=== PATIENT | male | born 1960 | race Caucasian/White ===

== ENCOUNTER 2023-08-27 06:59 | Outpatient (RCR) | payer OTHER, SELFPAY | END 2023-08-27 23:59 | disposition home or self-care (01) | LOC: RPT 06:59 | PROVIDERS: ATTENDING PHYSICIAN Specialist; FAMILY PHYSICIAN Family Medicine | DX: M75.41 Impingement syndrome of right shoulder (principal); M75.42 Impingement syndrome of left shoulder | CPT/HCPCS: 97110; 97162 ==

== ENCOUNTER 2023-09-26 16:06 | Outpatient (RCR) | payer OTHER, SELFPAY | END 2023-09-26 23:59 | disposition home or self-care (01) | LOC: RPT 16:06 | PROVIDERS: ATTENDING PHYSICIAN Specialist; FAMILY PHYSICIAN Family Medicine | DX: M75.41 Impingement syndrome of right shoulder (principal); M75.42 Impingement syndrome of left shoulder; Z73.6 Limitation of activities due to disability; M62.81 Muscle weakness (generalized) | CPT/HCPCS: 97110; 97140 ==

== ENCOUNTER 2023-10-17 15:56 | Outpatient (RCR) | payer OTHER, SELFPAY | END 2023-10-17 23:59 | disposition home or self-care (01) | LOC: RPT 15:56 | PROVIDERS: ATTENDING PHYSICIAN Specialist; FAMILY PHYSICIAN Family Medicine | DX: M75.41 Impingement syndrome of right shoulder (principal); M75.42 Impingement syndrome of left shoulder; Z73.6 Limitation of activities due to disability | CPT/HCPCS: 97110; 97140 ==

== ENCOUNTER → 2024-02-28 15:03 | Outpatient (REF) | payer OTHER, SELFPAY | LOC: HWRAD 15:03 | PROVIDERS: ATTENDING PHYSICIAN Family Medicine | DX: E78.2 Mixed hyperlipidemia (principal) | CPT/HCPCS: 75571 ==

== ENCOUNTER 2024-06-29 10:38 | Emergency (ER) | payer OTHER, SELFPAY ==
[2024-06-29 10:41] VITALS: BP 128/77
--- NOTE | 2024-06-29 11:19 | ED.GENMED ---
History of Present Illness
General
Chief Complaint: Facial Problem
Time Seen by Provider: 06/29/24 11:19
History of Present Illness
History of Present Illness:
TIME OF INITIAL ENCOUNTER: 11:25 AM
HPI: Over the last few days, the patient is describing left-sided facial/anterolateral neck discomfort. He had associated fevers and chills. He went to urgent care this morning where he tested negative for COVID. He has some trouble swallowing
due to pain near the left ear.
EXAM:
GENERAL: Well appearing in no distress
HEENT: Moist oral mucosa, there is no palpable mass in the anterolateral aspect of the left neck, TMJ function is normal, no palpable cervical lymphadenopathy
CARDIOVASCULAR: No murmurs, normal heart rate, regular rhythm, No chest wall tenderness
PULMONARY: No respiratory distress, breath sounds are clear and equal
ABDOMEN: Soft with no peritoneal signs, no tenderness
NEUROLOGIC: Excellent strength all extremities, no coordination deficits
PSYCHIATRIC: Appropriate mental status, normal insight and judgement
EXTREMITIES: Nontender, no edema, moves all extremities equally
SKIN: No rash, no lesions
NUMBER AND COMPLEXITY OF PROBLEMS ADDRESSED AT THE ENCOUNTER
� Chronic conditions affecting care: Hyperlipidemia, BPH, GERD
� Acute Exacerbation and/or Progression of Chronic Illness: This is an acute problem
� Differential Diagnosis includes: Viral syndrome, lymphadenitis, lymphadenopathy, neck/throat abscess
AMOUNT AND/OR COMPLEXITY OF DATA TO BE REVIEWED AND ANALYZED
� I performed an independent evaluation of and my interpretation is:
EKG:
CT: CT imaging shows no acute abnormality at the neck other than multiple left-sided thyroid nodules
X-rays:
Laboratory Studies: White count is normal at 9.1, hemoglobin 15.3, chemistries unremarkable
Other:
� Review of other/old records: I reviewed records, the patient had a colonoscopy in 2022
� Clinical information was obtained by an independent historian: None needed
� Prescriptions/Medications Considered but not given:
� Further testing considered but not performed:
RISK OF COMPLICATIONS AND/OR MORBIDITY OR MORTALITY OF PATIENT MANAGEMENT
� Social determinants of health affecting care: Lives at home
� Discussion with other providers:
� Escalation of care including admission/observation vs risk of discharge considered: Labs unremarkable however given the ongoing discomfort in the left anterolateral neck which is otherwise unexplained, CT imaging obtained.
ANY OTHER UPDATES:
2:10 PM: The patient is well-appearing on reassessment. He locates the pain more to the anterolateral aspect of the neck towards the angle of the mandible. I informed him of the abnormality in the thyroid however this does not clearly correlate
with his symptoms. I recommended outpatient ultrasound. Talked about the possibly of a viral syndrome.
Past History
Past History
ED Past Medical History: GERD and Hypercholesterolemia; Negative CAD
ED Past Surgical History: None
Social History
Tobacco: Non-smoker
Alcohol: Occasional
Personal:
Living: with family
Employment: Employed
Family History
Family History: Negative Early CAD or CAD
Phy Exam
Physical Exam
Physical Exam:
See HPI
Sepsis
Sepsis Screening
Sepsis Assessment: Sepsis Ruled Out
Sepsis Screen
Sepsis Screen: Sepsis Ruled Out
Date: 06/29/24
Time: 14:12
Course
Orders/Labs/Results
Orders:
Orders
06/29/24 11:29
CT Neck With Iv Contrast Urgent
Comment:
Reason For Exam: L anterolateral pain, F/C, trouble swallowing
Ketorolac [Toradol] 15 mg IV NOW STA
06/29/24 11:42
Complete Blood Count/With Diff Urgent
Comprehensive Metabolic Panel Urgent
Abnormal Lab Results
06/29/24
11:42
Absolute Neuts (auto) 7.0 H 10^3/uL
(1.4-6.5)
Absolute Lymphs (auto) 1.0 L 10^3/uL
(1.2-3.4)
Absolute Monos (auto) 1.0 H 10^3/uL
(0.1-0.6)
Neutrophils % 76.8 H %
(42.2-75.2)
Lymphocytes % 10.5 L %
(20.5-51.1)
Monocytes % 11.1 H %
(1.7-9.3)
Glucose 100 H mg/dl
(70-99)
06/29/24 11:42
06/29/24 11:42
Vital Signs
Initial and Last Documented VS:
Initial Vital Signs
Temp Pulse Resp BP Pulse Ox
98.3 F 85 16 128/77 98
06/29/24 10:41 06/29/24 10:41 06/29/24 10:41 06/29/24 10:41 06/29/24 10:41
Last Documented Vital Signs
Temp Pulse Resp BP Pulse Ox
98.3 F 85 16 128/77 98
06/29/24 10:41 06/29/24 10:41 06/29/24 10:41 06/29/24 10:41 06/29/24 10:41
*Critical Care Note
Total Time (30-74mins, 75-104mins- exclusive of procedures): Not Applicable
ED Attending Note
-
Portions of this chart may have been created with voice recognition software.� Occasional wrong word or��sound alike� substitutions may have occurred due to the inherent limitations of voice recognition software.
Discharge Plan
Departure
Prescriptions:
No Action
omeprazole magnesium [Prilosec OTC] 20 MG tablet,delayed release (DR/EC)
20 mg PO DAILY
Statin
20 mg PO HS
sucralfate 1 GRAM tablet
1 g PO ACHS Qty: 60 0RF
Referrals:
Lee,Turner J., DO [Family Provider] -
Interventions
Interventions:
*Risk Screen - Suicide Last Done: 06/29/24 10:41
*Neglect/Abuse Screening Last Done: 06/29/24 10:41
Discharge Date and Time
Print Language: DIVEHI
[2024-06-29] MEDS: TORADOL 15 MG IV (11:41)
[2024-06-29 11:54] LABS: % Basophils 0.4 % (0-2); % Eosinophils 0.9 % (0-6); % Immature Granulocytes 0.3 % (0-0.5); % Lymphocytes 10.5 % (20.5-51.1); % Monocytes 11.1 % (1.7-9.3); % Neutrophils 76.8 % (42.2-75.2); Absolute Eosinophils 0.1 10^3/uL (0-0.7); Hematocrit 43.7 % (39.0-52.0); Hemoglobin 15.3 g/dL (13.0-18.0); Mean Corpuscular Hgb 30.2 pg (27.0-31.0); Mean Corpuscular Volume 86.4 fL (80.0-94.0); Mean Platelet Volume 10.3 fL (7.4-10.4); Nucleated Red Blood Cells % 0 % (-); Platelet Count 237 10^3/uL (130-400); Red Blood Cell Count 5.06 10^6/uL (4.70-6.10); Red Cell Dist. Width 12.8 % (11.5-14.5); White Blood Cell Count 9.1 10^3/uL (4.8-10.8)
[2024-06-29 12:10] LABS: ALT (SGPT) 24 U/L (0-50); AST (SGOT) 22 U/L (17-59); Albumin 4.3 g/dl (3.5-5.0); Alkaline Phosphatase 73 U/L (38-126); Blood Urea Nitrogen 17 mg/dl (9-20); Calcium 9.3 mg/dl (8.4-10.2); Carbon Dioxide 28 mmol/L (22-30); Chloride 102 mmol/L (98-107); Glucose 100 mg/dl (70-99); Potassium 4.4 mmol/L (3.5-5.1); Sodium 139 mmol/L (135-145); Total Bilirubin 0.8 mg/dl (0.2-1.3); Total Protein 6.5 g/dl (6.3-8.2); eGFR > 60.00
[2024-06-29 14:57] VITALS: BP 123/71
== END 2024-06-29 15:02 | disposition home or self-care (01) ==
LOC: EMR 10:38
PROVIDERS: EMERGENCY PHYSICIAN Emergency Medicine; FAMILY PHYSICIAN Family Medicine
DX: R51.9 Headache, unspecified (principal); E78.00 Pure hypercholesterolemia, unspecified; K21.9 Gastro-esophageal reflux disease without esophagitis
CPT/HCPCS: 99284; 96374; 70491; 80053; 85025; Q9967

== ENCOUNTER → 2024-08-04 15:37 | Outpatient (REF) | payer OTHER, SELFPAY | LOC: RAD 15:37 | PROVIDERS: ATTENDING PHYSICIAN Family Medicine | DX: E04.2 Nontoxic multinodular goiter (principal) | CPT/HCPCS: 76536 ==

== ENCOUNTER → 2024-09-17 14:37 | Outpatient (REF) | payer OTHER, SELFPAY | LOC: RCS 14:37 | PROVIDERS: ATTENDING PHYSICIAN Internal Medicine Cardiovascular Disease; FAMILY PHYSICIAN Family Medicine | DX: E78.2 Mixed hyperlipidemia (principal); R93.1 Abnormal findings on diagnostic imaging of heart and coronary circulation; R06.09 Other forms of dyspnea | CPT/HCPCS: 93306 ==

== ENCOUNTER → 2024-09-21 07:45 | Outpatient (REF) | payer OTHER, SELFPAY | LOC: DHCBC/DCA 07:45 | PROVIDERS: ATTENDING PHYSICIAN Internal Medicine Cardiovascular Disease; FAMILY PHYSICIAN Family Medicine | DX: E78.2 Mixed hyperlipidemia (principal); R93.1 Abnormal findings on diagnostic imaging of heart and coronary circulation; R06.09 Other forms of dyspnea | CPT/HCPCS: 78452; 93017; A9500 ==

== ENCOUNTER → 2024-09-23 07:22 | Outpatient (REF) | payer OTHER, SELFPAY ==
[2024-09-23 07:55] VITALS: BP 124/82; BP_SYST 69
== END ==
LOC: RADI 07:22
PROVIDERS: ATTENDING PHYSICIAN Family Medicine
DX: E04.1 Nontoxic single thyroid nodule (principal)
CPT/HCPCS: 88173; 10005

== ENCOUNTER 2024-10-17 15:51 | Emergency (ER) | payer OTHER, SELFPAY ==
[2024-10-17 15:52] VITALS: BMI 27.1
[2024-10-17 15:54] VITALS: BP 133/78
--- NOTE | 2024-10-17 16:05 | ED.GENMED ---
History of Present Illness
General
Chief Complaint: Musculo-Skeletal Complaint
Source: patient and spouse
Exam Limitations: none
Time Seen by Provider: 10/17/24 15:59
Nursing documentation reviewed up to this point in time: agreed with
History of Present Illness
History of Present Illness:
64-year-old right handed male with a history of hyperlipidemia, GERD, BPH who presents to the emergency room for evaluation of right hand injury. Patient says that the spring broke on his garage door and when he tried to lower it his hand got
caught between the 2 panels. Sustained lacerations to the second third and fourth finger on the right hand. Came to the ER for assessment. No other injury. Unsure of his last tetanus he thinks it may have been more than 5 years.
Past History
Past History
ED Past Medical History: GERD and Hypercholesterolemia; Negative CAD
ED Past Surgical History: None
Social History
Tobacco: Non-smoker
Alcohol: Occasional
Personal:
Living: with family
Employment: Employed
Family History
Family History: Negative Early CAD or CAD
Review of Systems
Review of Systems
All Other Systems: ROS reviewed and negative except as documented in HPI and ROS
Skin: Reports other (Finger injuries)
Phy Exam
Physical Exam
Physical Exam:
General: Well appearing and non-toxic
HEENT: protecting airway
Neck: appears supple
CV: No evidence of cyanosis
Resp: No accessory muscle use
Abd: Non-distended
Extremities: Patient has horizontal linear lacerations across the right second third and fourth digits�on second digit distal fingertip minor laceration, on third digit deep laceration down to the bone just distal to the DIP joint, fourth digit
again deep linear laceration down to the bone as pictured; tissue distal to lacerations on the third and fourth digit is dusky
Neuro: Alert
Psych: Normal affect
Scores
Heart Failure Risk
Heart Failure Risk Score: Not Applicable
Heart Score for Chest Pain Patients
STEMI patient?: Not applicable
Withdrawal Assessment of Alcohol
Withdrawal Assessment Completed?: Not applicable
Course
Orders/Labs/Results
Orders:
Orders
10/17/24 16:00
Tetanus/Diphth/Acelpertussis [Adacel] 0.5 ml IM .ONCE ONE
CR Hand - Right Min 3 Views Urgent
Comment:
Reason For Exam: trauma to 2nd, 3rd, 4th digits
10/17/24 18:23
CeFAZolin SODIUM [Ancef] 1,000 mg IM NOW STA
Ketorolac [Toradol] 15 mg IM NOW STA
Oxycodone [Roxicodone] 5 mg PO NOW STA
Vital Signs
Initial and Last Documented VS:
Initial Vital Signs
Temp Pulse Resp BP Pulse Ox
36.3 C 82 18 133/78 93
10/17/24 15:54 10/17/24 15:54 10/17/24 15:54 10/17/24 15:54 10/17/24 15:54
Last Documented Vital Signs
Temp Pulse Resp BP Pulse Ox
36.3 C 76 16 135/84 98
10/17/24 15:54 10/17/24 18:00 10/17/24 18:00 10/17/24 18:00 10/17/24 18:00
Procedures
Laceration Closure
Right Second Finger:
Status of Wound: dirty
Size of Wound in cm: 2
Description of Wound Edges: ragged
Preparation: cleaned with saline
Anesthesia: 1% Lidocaine and Digital-Regional
Revision/Debridement: minor revision
Type of Closure: single layer closure
Skin Closure Material: 4-0 prolene (3)
Number of sutures: 3
Right Third Finger:
Status of Wound: dirty
Size of Wound in cm: 5
Description of Wound Edges: ragged and flap-poorly vascularized (Partial amputation of the fingertip)
Preparation: cleaned with saline and cleaned with Betadine
Anesthesia: 1% Lidocaine and Digital-Regional
Revision/Debridement: extensive revision and debrided
Wound exploration: extensive cleaning of contaminated wound
Type of Closure: single layer closure
Skin Closure Material: 4-0 prolene
Number of sutures: 10
Additional information:
Vigorously irrigated with saline and cleaned with Betadine sponge
Right Fourth Finger:
Status of Wound: dirty
Size of Wound in cm: 4
Description of Wound Edges: ragged and flap-poorly vascularized (Partial fingertip amputation)
Preparation: cleaned with saline and cleaned with Betadine
Anesthesia: 1% Lidocaine and Digital-Regional
Revision/Debridement: extensive revision and debrided
Wound exploration: extensive cleaning of contaminated wound
Type of Closure: single layer closure
Skin Closure Material: 4-0 prolene
Number of sutures: 10
Additional information:
Vigorously irrigated with saline and cleaned with Betadine sponge
MDM/Problems Addressed
Differential Diagnosis Includes:
Finger fracture, finger laceration
MDM/Problems Addressed:
64-year-old male presents for evaluation of right hand injury�he had 3 fingers caught between 2 garage door panels. Will update tetanus. Check x-ray. Reassess.
X-ray reviewed by me shows fractures of the third and fourth distal phalanx. Partial/near amputation with lacerations down to the bone, dusky fingertips. Discussed with orthopedist for recommendations.
Spoke with orthopedist/hand surgeon�unfortunately will likely require revision amputation. Recommended extensive irrigation, can attempt replantation/sutures but will need to be seen within the next week to be reassessed and likely schedule for
revision amputation. I did explain to the patient that in the opinion of orthopedist he will likely lose the fingertips. We did extensively clean and repaired injuries regardless. Will start on prophylactic antibiotic. Tetanus updated. Patient
understands importance of follow-up plan, return precautions.
*Radiology
Radiology exam reviewed: preliminary read by ED provider and radiology read reviewed
*Pulse Oximetry
Patient hypoxic: no
*Critical Care Note
Total Time (30-74mins, 75-104mins- exclusive of procedures): Not Applicable
Data Reviewed
Source: patient and spouse
Patient Management
Discussion with other providers: Water [employer]er (Discussed with orthopedist)
ED Attending Note
-
Portions of this chart may have been created with voice recognition software.� Occasional wrong word or��sound alike� substitutions may have occurred due to the inherent limitations of voice recognition software.
Discharge Plan
Departure
Patient Disposition: Home (Routine Discharge)
Date of Disposition: 10/17/24
Time of Disposition: 18:24
Patient with high blood pressure during this ER visit?: No
Discharge Problem:
Traumatic amputation of fingertip
Instructions: Common Finger Injuries ED
Prescriptions:
New
cephalexin 500 mg capsule
500 mg PO QID 7 Days Qty: 28 0RF
oxycodone 5 mg tablet
5 mg PO BID PRN (Reason: Pain) Qty: 10 0RF
No Action
pravastatin 40 mg Tablet
40 mg PO DAILY
tamsulosin [Flomax] 0.4 mg Capsule
0.4 mg PO DAILY
aspirin [Baby Aspirin] 81 mg Tablet,Chewable
81 mg PO DAILY
diazepam 5 mg Tablet
5 mg PO HS PRN (Reason: sleep)
Referrals:
Bob Abdi MD [Active] - Call in 1-3 days for appt (Hand Surgeon)
Activity Restrictions/Additional Instructions:
Thank you for visiting the Emergency Department at [facility].
1. Please schedule a follow up appointment as directed. Call first thing tomorrow morning to make an appointment.
2. If indicated, please take your medications as instructed and indicated on discharge paperwork.
3. If any of your symptoms do not improve, or persist, or become more severe within 6-12 hours, please return to the emergency department for further care.
4. Please return to the emergency department if you develop a headache, neck pain/stiffness, fever greater than 100.4F, chest pain, shortness of breath, persistent nausea, vomiting, slurred speech, difficulty walking, numbness/tingling, weakness,
signs of infection or any other symptoms that are worrisome to you.
Please call [phone] if you have any questions.
Interventions
Interventions:
*Risk Screen - Suicide Last Done: 10/17/24 15:54
*General Assessment Last Done: 10/17/24 15:54
*Neglect/Abuse Screening Last Done: 10/17/24 16:24
ED- Fall Risk Assessment Last Done: 10/17/24 16:24
*ED COVID-19 Vaccine History Last Done: 10/17/24 15:54
ED-Musculoskeletal Assessment Last Done: 10/17/24 16:23
Discharge Date and Time
Print Language: GREEK
[2024-10-17] MEDS: ADACEL 0.5 ML IM (16:37)
[2024-10-17 18:00] VITALS: BP 135/84
[2024-10-17] MEDS: ANCEF 1000 MG IM (18:32)
[2024-10-17] MEDS: ROXICODONE 5 MG PO (18:32)
[2024-10-17] MEDS: TORADOL 15 MG IM (18:33)
== END 2024-10-17 18:46 | disposition home or self-care (01) ==
LOC: EMR 15:51
PROVIDERS: EMERGENCY PHYSICIAN Emergency Medicine; FAMILY PHYSICIAN Family Medicine
DX: S62.632A Displaced fracture of distal phalanx of right middle finger, initial encounter for closed fracture (principal); S62.634A Displaced fracture of distal phalanx of right ring finger, initial encounter for closed fracture; S68.122A Partial traumatic metacarpophalangeal amputation of right middle finger, initial encounter; S68.124A Partial traumatic metacarpophalangeal amputation of right ring finger, initial encounter; S61.220A Laceration with foreign body of right index finger without damage to nail, initial encounter; S61.222A Laceration with foreign body of right middle finger without damage to nail, initial encounter; S61.224A Laceration with foreign body of right ring finger without damage to nail, initial encounter; W23.0XXA Caught, crushed, jammed, or pinched between moving objects, initial encounter; Z23 Encounter for immunization; E78.00 Pure hypercholesterolemia, unspecified; K21.9 Gastro-esophageal reflux disease without esophagitis; N40.0 Benign prostatic hyperplasia without lower urinary tract symptoms
CPT/HCPCS: 99284; 12044; 90471; 96372 ×2; 73130; 90715

== ENCOUNTER 2025-04-17 12:46 | Emergency (ER) | payer OTHER, SELFPAY ==
[2025-04-17 12:48] VITALS: BP 143/83
--- NOTE | 2025-04-17 13:23 | ED.GENMED ---
History of Present Illness
General
Chief Complaint: Flank Pain
Time Seen by Provider: 04/17/25 13:18
History of Present Illness
History of Present Illness:
And BPH presents the emergency department for evaluation of left flank pain began last evening. Describes an intermittent sharp pain with constant dull ache in the lower,. Is quite mild at this time. Reports nausea without vomiting. No dysuria
or hematuria. No history of abdominal surgeries. No fevers, chills, or sweats.
Past History
Past History
ED Past Medical History: GERD and Hypercholesterolemia; Negative CAD
ED Past Surgical History: None
Social History
Tobacco: Non-smoker
Alcohol: Occasional
Personal:
Living: with family
Employment: Employed
Family History
Family History: Negative Early CAD or CAD
Review of Systems
Review of Systems
Allergies reviewed?: Yes
All Other Systems: ROS reviewed and negative except as documented in HPI and ROS
Phy Exam
Physical Exam
Physical Exam:
GEN: Well appearing, NAD, WDWN
HEENT: Oral mucosa moist, no scleral icterus
Cardiac: Regular rate and rhythm, no murmurs
Lung: No respiratory distress, no tachypnea
Abdomen: Soft, grossly nontender
MSK: No gross deformity or injuries
Skin: Good color, no pallor or jaundice, no rashes
Neuro: AO x3, moves all extremities freely
Psych: Calm, cooperative
Course
Orders/Labs/Results
Orders:
Orders
04/17/25 13:22
CT Abd/pel Without Iv Or Oral Urgent
Comment:
Reason For Exam: L flank pain
0.9% Sodium Chloride 1000 ml [Nss] 1,000 ml IV BOLUS
Ketorolac [Toradol] 15 mg IV NOW STA
04/17/25 13:41
Basic Metabolic Panel Urgent
Complete Blood Count/No Diff Urgent
Urinalysis Reflex To Culture Urgent
Date Specimen was Collected: 04/17/25
Time Specimen was Collected: 13:26
Urine Microscopic Reflex Cult Urgent
Abnormal Lab Results
04/17/25
13:41
WBC 14.9 H 10^3/uL
(4.8-10.8)
BUN 23 H mg/dl
(9-20)
Glucose 101 H mg/dl
(70-99)
Ur Occult Blood Reflex 1+ A
(Negative)
Urine Bacteria (Reflex) Few A
(Negative)
04/17/25 13:41
04/17/25 13:41
Vital Signs
Initial and Last Documented VS:
Initial Vital Signs
Temp Pulse Resp BP Pulse Ox
98 F 82 16 143/83 98
04/17/25 12:48 04/17/25 12:48 04/17/25 12:48 04/17/25 12:48 04/17/25 12:48
Last Documented Vital Signs
Temp Pulse Resp BP Pulse Ox
98 F 82 16 143/83 98
04/17/25 12:48 04/17/25 12:48 04/17/25 12:48 04/17/25 12:48 04/17/25 13:24
MDM/Problems Addressed
MDM/Problems Addressed:
Imaging reveals a 3 mm distal ureteral stone. His pain is quite well-controlled at this time and there are no signs of systemic illness or infection in the urine. Will treat empirically with NSAIDs, he is already on Flomax daily
*Pulse Oximetry
SaO2: 98
Oxygen Mode of Delivery: Room air
Patient hypoxic: no
*Critical Care Note
Total Time (30-74mins, 75-104mins- exclusive of procedures): Not Applicable
ED Attending Note
-
Portions of this chart may have been created with voice recognition software.� Occasional wrong word or��sound alike� substitutions may have occurred due to the inherent limitations of voice recognition software.
Discharge Plan
Departure
Patient Disposition: Home (Routine Discharge)
Date of Disposition: 04/17/25
Time of Disposition: 14:55
Patient with high blood pressure during this ER visit?: No
Discharge Problem:
Ureterolithiasis
Instructions: Kidney stones in adults - ED discharge instructions
Prescriptions:
New
ketorolac 10 mg tablet
10 mg PO Q8H PRN (Reason: Pain) Qty: 15 0RF
Rx Instructions:
maximum total duration of 5 days from all oral, intranasal, or parenteral formulations
No Action
pravastatin 40 mg Tablet
40 mg PO DAILY
tamsulosin [Flomax] 0.4 mg Capsule
0.4 mg PO DAILY
aspirin [Baby Aspirin] 81 mg Tablet,Chewable
81 mg PO DAILY
diazepam 5 mg Tablet
5 mg PO HS PRN (Reason: sleep)
cephalexin 500 mg capsule
500 mg PO QID 7 Days Qty: 28 0RF
oxycodone 5 mg tablet
5 mg PO BID PRN (Reason: Pain) Qty: 10 0RF
oxycodone 5 mg tablet
5 mg PO BID PRN (Reason: Pain) Qty: 10 0RF
Referrals:
Turner Howard DO [Family Provider, Family Practice]
Interventions
Interventions:
*Risk Screen - Suicide Last Done: 04/17/25 12:48
*General Assessment Last Done: 04/17/25 13:40
*Neglect/Abuse Screening Last Done: 04/17/25 12:48
*ED- Fall Risk Assessment Last Done: 04/17/25 13:40
*Nursing Disposition Last Done: 04/17/25 15:00
GW-Diiisa-Awgepecftv Assessment Last Done: 04/17/25 14:00
ED-Male Genitourinary Assessment Last Done: 04/17/25 14:00
Discharge Date and Time
Discharge Date/Time: 04/17/25 15:00
Print Language: [id number]
[2025-04-17 13:26] VITALS: BMI 26.2
[2025-04-17] MEDS: TORADOL 15 MG IV (13:29)
[2025-04-17] MEDS: NSS 1000 IV (13:30)
[2025-04-17 13:46] LABS: Urine Character Clear (Clear)
[2025-04-17 13:49] LABS: Hematocrit 47.9 % (39.0-52.0); Hemoglobin 16.5 g/dL (13.0-18.0); Mean Corp Hgb Conc. 34.4 g/dL (33.0-37.0); Mean Corpuscular Volume 87.2 fL (80.0-94.0); Platelet Count 238 10^3/uL (130-400); Red Cell Dist. Width 12.2 % (11.5-14.5)
[2025-04-17 13:52] LABS: Urine Squamous Cell 0-2 /LPF (Few)
[2025-04-17 13:53] LABS: Urine Red Blood Cell 0-2 /HPF (0-2); Urine White Cell 0-2 /HPF (0-5)
[2025-04-17 13:59] LABS: Blood Urea Nitrogen 23 mg/dl (9-20); Calcium 9.4 mg/dl (8.4-10.2); Carbon Dioxide 26 mmol/L (22-30); Chloride 104 mmol/L (98-107); Estimated Creatinine Clearance 77 ml/min; Glucose 101 mg/dl (70-99); Potassium 4.3 mmol/L (3.5-5.1); Sodium 135 mmol/L (135-145); eGFR > 60.00
== END 2025-04-17 15:00 | disposition home or self-care (01) ==
LOC: EMR 12:46
PROVIDERS: Physician Assistant; EMERGENCY PHYSICIAN Student in an Organized Health Care Education/Training Program; FAMILY PHYSICIAN Family Medicine
DX: N13.2 Hydronephrosis with renal and ureteral calculous obstruction (principal); E78.00 Pure hypercholesterolemia, unspecified; N40.0 Benign prostatic hyperplasia without lower urinary tract symptoms
CPT/HCPCS: 96374; 96361; 99284; 74176; 80048; 81003; 81015; 85027

== ENCOUNTER → 2025-07-28 14:38 | Outpatient (REF) | payer OTHER, SELFPAY | LOC: HWRAD 14:38 | PROVIDERS: ATTENDING PHYSICIAN Family Medicine | DX: N13.30 Unspecified hydronephrosis (principal); E04.1 Nontoxic single thyroid nodule | CPT/HCPCS: 76536; 76775 ==